=== PATIENT | female | born 1935 | race African-American/Black ===

== ENCOUNTER 2020-04-16 14:32 | Emergency (ER) | payer MEDICARE, OTHER ==
[~2020-04-16] VITALS: Ht 165.1 cm; Wt 64.0 kg
[~2020-04-16 14:32] MED LIST: ATOR20TA PO; CELE200C PO; CITA20TA19 PO; FURO40TA5 PO; HYDR-4134 PO; LOSA100T32 PO; METO25TA6 PO; PREG75CA PO
[2020-04-16] MEDS ORDERED: ACETAMINOPHEN 325MG TABLET PO ONE (16:30)
[2020-04-16 18:00] VITALS: BP 142/60
== END 2020-04-16 18:01 | disposition home or self-care (01) ==
LOC: ER 14:32
DX: S69.92XA Unspecified injury of left wrist, hand and finger(s), initial encounter (principal); S89.91XA Unspecified injury of right lower leg, initial encounter; S89.92XA Unspecified injury of left lower leg, initial encounter; R07.81 Pleurodynia; I10 Essential (primary) hypertension; M79.7 Fibromyalgia; Z98.84 Bariatric surgery status; Z90.710 Acquired absence of both cervix and uterus; Z98.890 Other specified postprocedural states; Z88.5 Allergy status to narcotic agent; W01.0XXA Fall on same level from slipping, tripping and stumbling without subsequent striking against object, initial encounter; Y93.89 Activity, other specified; Y92.512 Supermarket, store or market as the place of occurrence of the external cause; Y99.8 Other external cause status
CPT/HCPCS: 71045; 73130; 73562; 99284

== ENCOUNTER 2020-05-24 12:57 | Emergency (ER) | payer MEDICARE ==
[~2020-05-24] VITALS: Ht 165.1 cm; Wt 70.0 kg
[2020-05-24 12:59] VITALS: BP 108/86
[2020-05-24] MEDS ORDERED: LIDOCAINE HCL/PF 1% 10 MG/ML 5ML VIAL IJ ONE (13:15)
[2020-05-24] MEDS ORDERED: TETANUS, DIPHTHERIA, PERTUSSIS VAC/PF 0.5ML (>7YR OLD) IM ONE (13:15)
[2020-05-24] MEDS ORDERED: BACITRACIN ZINC OINT UDPKT TOP ONE (13:15)
== END 2020-05-24 14:56 | disposition home or self-care (01) ==
LOC: ER 12:57
DX: S61.412A Laceration without foreign body of left hand, initial encounter (principal); W01.0XXA Fall on same level from slipping, tripping and stumbling without subsequent striking against object, initial encounter; Y93.9 Activity, unspecified; Y92.9 Unspecified place or not applicable; I10 Essential (primary) hypertension; M79.7 Fibromyalgia; Z88.6 Allergy status to analgesic agent; Z98.84 Bariatric surgery status; Z90.710 Acquired absence of both cervix and uterus
CPT/HCPCS: 90471; 90715; 99283; J3490

== ENCOUNTER 2020-05-26 09:02 | Emergency (ER) | payer MEDICARE ==
[~2020-05-26] VITALS: Ht 165.1 cm; Wt 64.0 kg
[2020-05-26] MEDS ORDERED: BACITRACIN ZINC OINT UDPKT TOP ONE (09:45)
[2020-05-26 09:57] VITALS: BP 136/62
== END 2020-05-26 09:58 | disposition home or self-care (01) ==
LOC: ER 09:02
DX: Z48.00 Encounter for change or removal of nonsurgical wound dressing (principal); I10 Essential (primary) hypertension; M79.7 Fibromyalgia; S61.412D Laceration without foreign body of left hand, subsequent encounter; X58.XXXD Exposure to other specified factors, subsequent encounter; Z88.6 Allergy status to analgesic agent; Z90.49 Acquired absence of other specified parts of digestive tract; Z98.84 Bariatric surgery status
CPT/HCPCS: 99283

== ENCOUNTER 2024-02-13 05:30 | Emergency (ER) | payer MEDICARE ==
[~2024-02-13] VITALS: Ht 157.5 cm; Wt 70.0 kg
[~2024-02-13 05:30] MED LIST changes: +CELE-384 PO; -CELE200C PO; -HYDR-4134 PO; +HYDR25TA78 PO; -LOSA100T32 PO; +LOSA100T33 PO
[2024-02-13 05:36] VITALS: TEMP 98.5; O2SAT 99
[2024-02-13 07:20] LABS: BASOPHILS % 0.8 % (0.0-2.0); EOSINOPHILS % 2.8 % (0.0-5.0); HEMATOCRIT. 43.8 % (36.0-48.0); HEMOGLOBIN. 14.3 g/dL (12.0-16.0); LYMPHOCYTES % 29.9 % (20.0-50.0); MEAN CORPUSCULAR HEMOGLOBIN 28.3 pg (28.0-32.0); MEAN CORPUSCULAR HGB CONC 32.6 g/dL (31.0-37.0); MEAN PLATELET VOLUME 8.4 fl (7.4-10.4); MONOCYTES % 6.9 % (2.0-8.0); NEUTROPHILS % 59.6 % (40.0-76.0); PLATELET 228 x1000/uL (130-400); RED BLOOD CELL COUNT 5.04 mill/uL (4.2-5.4); RED CELL DISTRIBUTION WIDTH 14.5 % (11.6-14.6); WHITE BLOOD COUNT 3.4 x1000/uL (4.5-11.0)
[2024-02-13 07:23] LABS: CLARITY URINE CLOUDY (CLEAR); COLOR URINE YELLOW (YELLOW); GLUCOSE URINE NEGATIVE (NEGATIVE); KETONES URINE NEGATIVE (NEGATIVE); LEUKOCYTE ESTERASE URINE TRACE (NEGATIVE); NITRITE URINE NEGATIVE (NEGATIVE); OCCULT BLOOD URINE NEGATIVE (NEGATIVE); PROTEIN URINE NEGATIVE (NEGATIVE); SPECIFIC GRAVITY URINE 1.014 (1.005-1.030)
[2024-02-13 07:33] LABS: CHLORIDE 96 mEq/L (98-107); POTASSIUM 3.8 mEq/L (3.5-5.1); SODIUM 138 mEq/L (136-145)
[2024-02-13 07:34] LABS: CALCIUM 10.4 mg/dL (8.7-10.4); CARBON DIOXIDE 35 mEq/L (21-32)
[2024-02-13 07:39] LABS: CREATININE 0.7 mg/dL (0.6-1.0); GLUCOSE 100 mg/dL (70-105); UREA NITROGEN BLOOD 18 mg/dL (9-23)
[2024-02-13 07:40] LABS: TROPONIN I HIGH SENSITIVITY 8 ng/L (3.0-34)
[2024-02-13 08:02] VITALS: BP 144/83; PULSE 82; RESP 21
[2024-02-13 08:08] LABS: RBC URINE 0-2 /hpf (0-2)
[2024-02-13 08:09] LABS: SQUAMOUS EPITHELIAL CELL URINE NONE SEEN /lpf (RARE/1+)
[2024-02-13 08:11] LABS: AMORPHOUS SEDIMENT URINE 1+ /lpf; BACTERIA URINE NONE SEEN
== END 2024-02-13 09:17 | disposition home or self-care (01) ==
LOC: ER 06:42
DX: R42 Dizziness and giddiness (principal); R06.02 Shortness of breath; Z88.5 Allergy status to narcotic agent
CPT/HCPCS: 36415; 71045; 80048; 81003; 83880; 84484; 85025; 93005; 99285